=== PATIENT | male | born 1990 | race Two or more races ===

== ENCOUNTER 2019-03-09 23:06 | Emergency (ER) | payer MEDICAID ==
[~2019-03-09] VITALS: Ht 182.9 cm; Wt 72.6 kg
[2019-03-09 23:06] VITALS: BP 137/86
[2019-03-09] MEDS ORDERED: OLANZAPINE 5 MG TABLET PO ONE (23:30)
== END 2019-03-10 00:26 | disposition home or self-care (01) ==
LOC: ER 23:06
DX: F60.0 Paranoid personality disorder (principal); Z76.5 Malingerer [conscious simulation]